=== PATIENT | female | born 1950 | race African-American/Black ===

== ENCOUNTER 2021-07-08 13:47 | Observation (INO) | payer OTHER ==
[2021-07-08 16:26] LABS: Absolute Lymphocytes (CBC) 2.1 K/uL (0.7-4.9); Basophils % 0.4 % (0-1.3); Lymphocytes % 13.6 % (15.3-44.8); MPV 9.2 fL (7.6-11.3); RBC Red Blood Cell Count 4.09 M/uL (3.86-4.86)
--- NOTE | 2021-07-08 16:29 | RAD REPORT ---
EXAM DESCRIPTION: RAD - Chest Single View - 07/08/2021 3:26 pm CLINICAL HISTORY: Chest pain, shortness of breath COMPARISON: January 2017 TECHNIQUE: AP portable chest image was obtained 07/08/2021 3:26 pm . FINDINGS: Lung volumes are low. Left subclavian pacemaker is still in place. Lung base markings are accentuated by the low lung volumes. This could mask early infiltrate or edema. Upper lung medeiros are clear. Cardiac silhouette is enlarged, most which is the portable technique and low lung volume affects. Hea rt and vasculature are normal. No measurable pleural effusion and no pneumothorax. No acute bony abno rmality seen. No acute aortic findings suspected. IMPRESSION: Early infiltrate or edema in either lung base cannot be excluded due to the affects of b long habitus, portable technique and shallow inspiration. No dense mass or consolidation. Borderline to mild cardiomegaly.
[2021-07-08 16:35] LABS: Protime INR 1.02
[2021-07-08 17:05] LABS: ALT/SGPT 34 U/L (12-78); AST/SGOT 21 U/L (15-37); Albumin 3.8 g/dL (3.4-5.0); Alkaline Phosphatase 93 U/L (45-117); BUN Blood Urea Nitrogen 22 mg/dL (7-18); Bicarbonate 25 mmol/L (21-32); Bilirubin Direct < 0.1 mg/dL (0-0.2); Bilirubin Total 0.2 mg/dL (0.2-1.0); Glucose Level 113 mg/dL (74-106); Magnesium 1.8 mg/dL (1.8-2.4); NT PRO-BNP 170 pg/mL (<125); Protein, Total 8.7 g/dL (6.4-8.2); Sodium Level 139 mmol/L (136-145); Troponin (Emerg Dept Use Only) < 0.02 ng/mL (0.0-0.045)
[2021-07-08 17:12] LABS: Potassium 6.3 mmol/L (3.5-5.1)
--- NOTE | 2021-07-08 17:36 | EDPHYS ---
Physician Documentation [facility] Name: Chelsi Nye Age: 70 yrs Sex: Female : 1950 Arrival Date: 07/08/2021 Time: 13:48 Bed 28 Private MD: Eric [facility] ED Physician Sergei Rdz HPI: 07/08 16:28 This 70 yrs old Black Female presents to ER via Ambulatory with complaints of Abnormal pm1 Lab Results - potassium. 16:28 Patient presenting with complaints of hyperkalemia. Patient with no other complaints pm1 other than abnormal lab work drawn by PCP yesterday. No associated symptoms or signs. Onset: The symptoms/episode began/occurred today. The patient has not experienced similar symptoms in the past. The patient has been recently seen by a physician: the patient's primary care provider, Dr. Reyes for apparently unrelated complaints, patient was seen for a routine check. Historical: - Allergies: 14:24 Codeine; lp1 - Home Meds: 15:25 clopidogrel 75 mg oral tab 1 tab once daily [Active]; metformin 500 mg Oral tab 1 tab 2 lp1 times per day [Active]; atorvastatin 80 mg oral tab 1 tab once daily [Active]; hydrochlorothiazide 25 mg Oral tab 1 tab once daily [Active]; carvedilol 12.5 mg oral tab 1 tab 2 times per day [Active]; hydralazine 25 mg Oral tab 3 tab 4 times per day [Active]; lisinopril 40 mg Oral tab 1 tab once daily [Active]; iron 65mg daily [Active]; - PMHx: 14:24 Hyperlipidemia; Hypertension; Myocardial infarction; CVA; lp1 - PSHx: 14:24 Pacemaker/Defib; lp1 - Immunization history:: Adult Immunizations up to date. - Social history:: Smoking status: Patient denies any tobacco usage or history of. ROS: 16:28 Constitutional: Negative for fever, chills, and weight loss, Cardiovascular: Negative pm1 for chest pain, palpitations, and edema, Respiratory: Negative for shortness of breath, cough, wheezing, and pleuritic chest pain, Abdomen/GI: Negative for abdominal pain, nausea, vomiting, diarrhea, and constipation, MS/Extremity: Negative for injury and deformity, Skin: Negative for injury, rash, and discoloration, Neuro: Negative for headache, weakness, numbness, tingling, and seizure. 16:28 All other systems are negative. Exam: 16:28 Constitutional: This is a well developed, well nourished patient who is awake, alert, pm1 and in no acute distress. Head/Face: Normocephalic, atraumatic. 16:28 Skin: Warm, dry with normal turgor. Normal color with no rashes, no lesions, and no evidence of cellulitis. MS/ Extremity: Pulses equal, no cyanosis. Neurovascular intact. Full, normal range of motion. 16:28 Cardiovascular: Exam negative for acute changes, Rate: normal, Rhythm: regular, Pulses: no pulse deficits are appreciated, Heart sounds: normal, normal S1and S2, Edema: is not appreciated. 16:28 Respiratory: Exam negative for acute changes, respiratory distress, shortness of breath, Breath sounds: are clear throughout. 16:28 Abdomen/GI: Inspection: obese Palpation: abdomen is soft and non-tender, in all quadrants. 16:28 Neuro: Exam negative for acute changes, Orientation: is normal, Mentation: is normal, Motor: moves all fours. 16:28 Eyes: Exam is negative for acute changes, Extraocular movements: intact throughout, pm1 Sclera: no acute changes, icterus, is not appreciated. 16:28 ENT: Exam is negative for acute changes, Mouth: no acute changes, Lips: normal, moist, Oral mucosa: normal, pink and intact, moist. Vital Signs: 14:27 BP 173 / 80; Pulse 102; Resp 20; Temp 98.4(O); Pulse Ox 100% on R/A; Weight 99.34 kg lp1 (R); Height 5 ft. 3 in. (160.02 cm); Pain 0/10; 16:44 BP 180 / 91; Pulse 103; Resp 16; Pulse Ox 100% ; jl7 18:00 BP 190 / 78; Pulse 113; Resp 15; Pulse Ox 100% ; jl7 18:15 BP 203 / 78; Pulse 121; Resp 19; Pulse Ox 96% ; jl7 18:45 BP 175 / 75; Pulse 115; Resp 20; Pulse Ox 96% ; jl7 14:27 Body Mass Index 38.79 (99.34 kg, 160.02 cm) lp1 MDM: 15:21 Patient medically screened. pm1 17:29 Physician consultation: Wilmer Fior was contacted at 17:29, regarding admission, pm1 patient's condition, and will see patient would like medications started, Lasix. 17:35 Data reviewed: vital signs. Data interpreted: Pulse oximetry: on room air is 100 %. pm1 Interpretation: normal. 17:35 Counseling: I had a detailed discussion with the patient and/or guardian regarding: the pm1 historical points, exam findings, and any diagnostic results supporting the discharge/admit diagnosis, lab results, radiology results, the need for further work-up and treatment in the hospital. 07/08 14:32 Order name: Basic Metabolic Panel; Complete Time: 17:19 lp1 07/08 14:32 Order name: CBC with Diff; Complete Time: 16:33 lp1 07/08 14:32 Order name: LFT's; Complete Time: 17:19 lp1 07/08 14:32 Order name: Magnesium; Complete Time: 17:19 lp1 07/08 14:32 Order name: NT PRO-BNP; Complete Time: 17:19 lp1 07/08 14:32 Order name: PT-INR; Complete Time: 16:59 lp1 07/08 14:32 Order name: Troponin (emerg Dept Use Only); Complete Time: 17:19 lp1 07/08 18:21 Order name: SARS-COV-2 RT PCR; Complete Time: 19:28 EDAZ 07/08 18:23 Order name: Urine Microscopic Only [facility] 07/08 18:24 Order name: Urine Microscopic Only EDAZ 07/09 06:06 Order name: CBC with Automated Diff EDAZ 07/09 06:09 Order name: Comprehensive Metabolic Panel EDAZ 07/09 06:09 Order name: Lipid Profile EDAZ 07/08 14:32 Order name: XRAY Chest (1 view); Complete Time: 16:33 lp1 07/09 06:09 Order name: T4 Free EDAZ 07/09 06:09 Order name: Thyroid Stimulating Hormone EDAZ 07/09 06:46 Order name: Urinalysis EDAZ 07/09 06:50 Order name: Procalcitonin EDAZ 07/09 06:57 Order name: Urine Microscopic Only EDAZ 07/09 09:02 Order name: RAD EDAZ 07/09 12:12 Order name: Basic Metabolic Panel EDAZ 07/09 12:12 Order name: Magnesium EDMS 07/08 14:32 Order name: EKG; Complete Time: 14:33 lp1 07/08 14:32 Order name: Cardiac monitoring; Complete Time: 16:12 lp1 07/08 14:32 Order name: EKG - Nurse/Tech; Complete Time: 16:34 lp1 07/08 14:32 Order name: IV Saline Lock; Complete Time: 16:12 lp1 07/08 14:32 Order name: Labs collected and sent; Complete Time: 16:12 lp1 07/08 14:32 Order name: O2 Per Protocol; Complete Time: 16:12 lp1 07/08 14:32 Order name: O2 Sat Monitoring; Complete Time: 16:12 lp1 Administered Medications: 17:50 Drug: D50W 50 ml Route: IVP; Site: right antecubital; jl7 18:29 Follow up: Response: No adverse reaction jl7 17:55 Drug: Insulin Regular Human 5 units {Co-Signature: ap3 (Trini Heck RN).} Route: jl7 IVP; Site: right antecubital; 18:29 Follow up: Response: No adverse reaction jl7 17:56 Drug: Albuterol 5 mg Route: Inhalation; jl7 18:29 Follow up: Response: No adverse reaction jl7 17:56 Drug: Lasix (furosemide) 20 mg Route: IVP; Site: right antecubital; jl7 18:29 Follow up: Response: No adverse reaction jl7 17:59 Drug: Calcium Gluconate 1 grams Route: IVPB; Infused Over: 60 mins; Site: right jl7 antecubital; 18:56 Follow up: IV Status: Completed infusion ap3 18:29 Drug: hydrALAZINE 10 mg Route: IVP; Site: right antecubital; jl7 19:00 Follow up: Response: No adverse reaction; Blood pressure is lowered jl7 20:58 Drug: NS 0.9% 500 ml Route: IV; Rate: bolus; Site: right antecubital; fu 21:45 Follow up: Response: No adverse reaction; IV Status: Completed infusion; IV Intake: jl7 500ml 20:59 Drug: Kayexalate (polystyrene) 45 grams Route: PO; fu Disposition: 07/09 16:22 Co-signature as Attending Physician, Sergei Rdz MD I agree with the assessment and sammie plan of care. Disposition Summary: 07/08/21 17:36 Hospitalization Ordered Hospitalization Status: Observation pm1 Condition: Stable pm1 Problem: new pm1 Symptoms: have improved pm1 Bed/Room Type: Standard pm1 Provider: Arturo Hickey(07/08/21 18:29) la1 Location: [facility] ER HOLD(07/08/21 19:22) Room Assignment: ERHOLD-(07/08/21 19:22) cg Diagnosis - Hyperkalemia pm1 Forms: - Medication Reconciliation Form pm1 - SBAR form pm1 Signatures: Dispatcher [employer] EDMS Sergei Rdz MD MD cha Pena, Laura, RN RN lp1 Wilmer Childress, PASTORAL WORKER-C PASTORAL WORKER-Cla1 Rosette Solorzano, RN RN Antonio Cesar, MAGGI TRANSFORMATION LEAD pm1 Albin Elkins RN RN jl7 Stanley Rea RN Trini Olmstead RN ap3 Trini Heck RN ap3 Corrections: (The following items were deleted from the chart) 07/08 17:43 17:36 Wilmer Childress pm1 la1 18:21 17:36 CORONAVIRUS+MR.LAB.BRZ ordered. [facility] EDAZ 18:29 17:43 Serg Flowers la1 la1 19:22 17:36 Telemetry/MedSurg (observation) pm1 cg 19:22 17:36 pm1 cg
--- NOTE | 2021-07-08 17:36 | ER ---
Nurse's Notes [facility] Name: Chelsi Nye Age: 70 yrs Sex: Female : 1950 Arrival Date: 07/08/2021 Time: 13:48 Bed 28 Private MD: Nick Reyes Diagnosis: Hyperkalemia Presentation: 07/08 14:23 Chief complaint: Patient states: Labs done yesterday at Dr. Reyes's office and notified lp1 today of high potassium level. Coronavirus screen: At this time, the client does not indicate any symptoms associated with coronavirus-19. Ebola Screen: No symptoms or risks identified at this time. Risk Assessment: Do you want to hurt yourself or someone else? Patient reports no desire to harm self or others. Onset of symptoms was July 08, 2021. 14:23 Method Of Arrival: Ambulatory lp1 14:23 Acuity: VISHAL 3 lp1 14:27 Initial Sepsis Screen: Does the patient meet any 2 criteria? No. Patient's initial lp1 sepsis screen is negative. Does the patient have a suspected source of infection? No. Patient's initial sepsis screen is negative. Historical: - Allergies: 14:24 Codeine; lp1 - Home Meds: 15:25 clopidogrel 75 mg oral tab 1 tab once daily [Active]; metformin 500 mg Oral tab 1 tab 2 lp1 times per day [Active]; atorvastatin 80 mg oral tab 1 tab once daily [Active]; hydrochlorothiazide 25 mg Oral tab 1 tab once daily [Active]; carvedilol 12.5 mg oral tab 1 tab 2 times per day [Active]; hydralazine 25 mg Oral tab 3 tab 4 times per day [Active]; lisinopril 40 mg Oral tab 1 tab once daily [Active]; iron 65mg daily [Active]; - PMHx: 14:24 Hyperlipidemia; Hypertension; Myocardial infarction; CVA; lp1 - PSHx: 14:24 Pacemaker/Defib; lp1 - Immunization history:: Adult Immunizations up to date. - Social history:: Smoking status: Patient denies any tobacco usage or history of. Screenin:27 Abuse screen: Denies threats or abuse. Denies injuries from another. Nutritional lp1 screening: No deficits noted. Tuberculosis screening: No symptoms or risk factors identified. Fall Risk None identified. Assessment: 16:00 General: Appears in no apparent distress. uncomfortable, Behavior is calm, cooperative, jl7 appropriate for age. Pain: Denies pain. Neuro: Level of Consciousness is awake, alert, obeys commands, Oriented to person, place, time, situation. Cardiovascular: Denies chest pain, palpitations, shortness of breath, Patient's skin is warm and dry. Respiratory: Airway is patent Respiratory effort is even, unlabored, Respiratory pattern is regular, symmetrical. Derm: Skin is dry, Skin is normal, Skin temperature is warm. 17:00 Reassessment: Patient appears in no apparent distress at this time. No changes from jl7 previously documented assessment. Patient and/or family updated on plan of care and expected duration. Pain level reassessed. Patient is alert, oriented x 3, equal unlabored respirations, skin warm/dry/pink. 18:00 Reassessment: Patient appears in no apparent distress at this time. No changes from jl7 previously documented assessment. Patient and/or family updated on plan of care and expected duration. Pain level reassessed. Patient is alert, oriented x 3, equal unlabored respirations, skin warm/dry/pink. Vital Signs: 14:27 BP 173 / 80; Pulse 102; Resp 20; Temp 98.4(O); Pulse Ox 100% on R/A; Weight 99.34 kg lp1 (R); Height 5 ft. 3 in. (160.02 cm); Pain 0/10; 16:44 BP 180 / 91; Pulse 103; Resp 16; Pulse Ox 100% ; jl7 18:00 BP 190 / 78; Pulse 113; Resp 15; Pulse Ox 100% ; jl7 18:15 BP 203 / 78; Pulse 121; Resp 19; Pulse Ox 96% ; jl7 18:45 BP 175 / 75; Pulse 115; Resp 20; Pulse Ox 96% ; jl7 14:27 Body Mass Index 38.79 (99.34 kg, 160.02 cm) lp1 ED Course: 13:48 Patient arrived in ED. as 13:48 Nick Reyes DO is Private Physician. as 14:24 Triage completed. lp1 14:24 Arm band placed on. lp1 15:21 Antonio Rossi NP is PHCP. pm1 15:21 Sergei Rdz MD is Attending Physician. pm1 15:25 Albin Elkins, CHAPO is Primary Nurse. jl7 15:26 XRAY Chest (1 view) In Process Unspecified. EDMS 16:00 Patient has correct armband on for positive identification. Placed in gown. Bed in low jl7 position. Call light in reach. Side rails up X2. playground monitor on. Pulse ox on. NIBP on. Warm blanket given. 16:00 Initial lab(s) drawn, by me, sent to lab. EKG done, by ED staff, reviewed by Antonio Rossi NP. Inserted saline lock: 20 gauge in right antecubital area, using aseptic technique. Blood collected. 17:35 Wilmer Childress is Hospitalizing Provider. pm1 17:43 Serg Flowers DO is Hospitalizing Provider. la1 18:29 Arturo Hickey MD is Hospitalizing Provider. la1 18:31 No provider procedures requiring assistance completed. Patient admitted, IV remains in jl7 place. intact, No redness/swelling at site. Administered Medications: 17:50 Drug: D50W 50 ml Route: IVP; Site: right antecubital; jl7 18:29 Follow up: Response: No adverse reaction jl7 17:55 Drug: Insulin Regular Human 5 units {Co-Signature: ap3 (Trini Heck RN).} Route: jl7 IVP; Site: right antecubital; 18:29 Follow up: Response: No adverse reaction jl7 17:56 Drug: Albuterol 5 mg Route: Inhalation; jl7 18:29 Follow up: Response: No adverse reaction jl7 17:56 Drug: Lasix (furosemide) 20 mg Route: IVP; Site: right antecubital; jl7 18:29 Follow up: Response: No adverse reaction jl7 17:59 Drug: Calcium Gluconate 1 grams Route: IVPB; Infused Over: 60 mins; Site: right jl7 antecubital; 18:56 Follow up: IV Status: Completed infusion ap3 18:29 Drug: hydrALAZINE 10 mg Route: IVP; Site: right antecubital; jl7 19:00 Follow up: Response: No adverse reaction; Blood pressure is lowered jl7 20:58 Drug: NS 0.9% 500 ml Route: IV; Rate: bolus; Site: right antecubital; fu 21:45 Follow up: Response: No adverse reaction; IV Status: Completed infusion; IV Intake: jl7 500ml 20:59 Drug: Kayexalate (polystyrene) 45 grams Route: PO; fu Intake: 21:45 IV: 500ml; Total: 500ml. jl7 Outcome: 17:36 Decision to Hospitalize by Provider. pm1 19:30 Admitted to ER Hold. Please see [facility] for further documentation. jl7 19:30 Condition: stable 19:30 Discharge instructions given to patient, family, Instructed on the need for admit, Demonstrated understanding of instructions. 07/09 13:18 Patient left the ED. eb Signatures: Dispatcher [employer] EDMS Yuly Wright Laura, RN CHAPO lp1 Wilmer Childress, MANAGED CARE MANAGER-C MANAGED CARE MANAGER-[facility]1 Antonio Rossi, MANAGER WHOLESALE MANAGER WHOLESALE pm1 Albin Elkins RN RN jl7 Stanley Rea RN RN fu Prokisch, Amanda, RN RN ap3 Miryam Simpson RN3
[2021-07-08] MEDS ORDERED: ALBUTEROL 2.5 MG/3 ML NEB SOL ONE (18:02)
[2021-07-08] MEDS ORDERED: FUROSEMIDE 20 MG/ 2ML VIAL ONE (18:02)
[2021-07-08] MEDS ORDERED: CALCIUM GLUCONATE 1 GM IVPB 1 GM/50 ML BAG IV ONE (18:03)
[2021-07-08] MEDS ORDERED: D50W 25 GM/50 ML SYRINGE IV ONE (18:03)
[2021-07-08] MEDS ORDERED: INSULIN -REGULAR HUMAN 50 UNIT/0.5 ML ML ONE (18:03)
--- NOTE | 2021-07-08 18:29 | P.HP ---
Certification for Inpatient Patient admitted to: Observation With expected LOS: <2 Midnights Patient will require the following post-hospital care: None Practitioner: I am a practitioner with admitting privileges, knowledge of patient current condition, hospital course, and medical plan of care. Services: Services provided to patient in accordance with Admission requirements found in Title 42 Section 412.3 of the Code of Federal Regulations Patient History Date of Service: 07/08/21 Primary Care Provider: Dr. Reyes Reason for admission: Hyperkalemia History of Present Illness: 70-year-old Afro-[place] female presented to the emergency department for abnormal lab. Patient had labs drawn by her primary care doctor Dr. Reyes yesterday and she was called for having high potassium level of 7.0. Patient was referred to the emergency department and evaluated labs are significant for potassium 6.3 chloride 108 BUN 22 GFR 58 glucose 113 BNP 170 blood cell count 15.6 hemoglobin 11.2 urinalysis pending. Patient's renal function slightly worse than previous baseline GFR appears to be around 80, currently 58. Patient does not take any potassium sparing diuretics or other medications although daughter does report that she has been taking a lot of vitamin supplementation given Covid environment. Daughter does not have the supplements available for review at this time but will attempt to obtain them. Patient was treated with Kayexalate, IV insulin/dextrose, calcium gluconate, Lasix in the emergency department for hyperkalemia. EKG with some mild peaked T waves, ED provider wishes to admit to observation for further evaluation and management. Allergies codeine Allergy (Unverified 02/16/17 21:20) Unknown - Past Medical/Surgical History -: Hypertension -: Hyperlipidemia -: History of GA/CVA 2016 -: Pacemaker/defibrillator insertion Psychosocial/ Personal History: Currently resides with her daughter - Family History Family History: Reviewed- Non-Contributory - Social History Smoking Status: Never smoker Alcohol use: No CD- Drugs: No Caffeine use: No Place of Residence: Home Review of Systems Unremarkable Physical Examination - Physical Exam General: Alert, In no apparent distress, Oriented x3 HEENT: Atraumatic, PERRLA, Other (Mucous membranes dry), EOMI, Sclerae nonicteric Neck: Supple, 2+ carotid pulse no bruit, No LAD, Without JVD or thyroid abnormality Respiratory: Clear to auscultation bilaterally, Normal air movement Cardiovascular: Regular rate/rhythm, Normal S1 S2 Gastrointestinal: Normal bowel sounds, No tenderness Musculoskeletal: No tenderness Integumentary: No rashes Neurological: Normal speech, Normal strength at 5/5 x4 extr, Normal tone, Normal affect - Studies Laboratory Data (last 24 hrs) 07/08/21 16:09: PT 11.7, INR 1.02 07/08/21 16:09: WBC 15.60 H, Hgb 11.2 L, Hct 36.0, Plt Count 329 07/08/21 16:09: Sodium 139, Potassium 6.3 H*, BUN 22 H, Creatinine 1.12, Glucose 113 H, Magnesium 1.8, Total Bilirubin 0.2, AST 21, ALT 34, Alkaline Phosphatase 93 Assessment and Plan - Plan Assessment: Hyperkalemia Acute kidney injury Leukocytosis Hypertension Hyperlipidemia History of GA/CVA Plan: Hyperkalemia: Treated with potassium cocktail in the emergency department, will recheck. Patient not on any potassium sparing diuretics, renal function although slightly diminished from previous appears to be intact, patient with good urinary output. Daughter reports that patient has been taking some [id number] supplements to protect from Covid, will attempt to obtain the medications to determine if this could be contributing. Acute kidney injury: Continue gentle hydration throughout the evening, recheck with morning labs. Leukocytosis: ROS negative, will obtain procalcitonin, urine interview chest x- ray. Hypertension: Obtain and continue medications, patient is hypertensive had to give hydralazine in the ER. Hyperlipidemia: Obtain and continue medications History of GA/CVA: No deficits from previous CVA, continue home medications. DVT PPX: Heparin Code status: Full Discharge Plan: Home Plan to discharge in: 24 Hours - Advance Directives Does patient have a Living Will: No Does patient have a Durable POA for Healthcare: No - Code Status/Comfort Care Code Status Assessed: Yes (Full code) Critical Care: No Time Spent Managing Pts Care (In Minutes): 55
[2021-07-08] MEDS ORDERED: SOD POLYSTYREN SUL 15 GM/60 ML UCUP ONE ×3 (18:40→21:09)
[2021-07-08] MEDS ORDERED: HYDRALAZINE HCL 20 MG/ML VIAL ONE (18:40)
[2021-07-08] MEDS ORDERED: ONDANSETRON 4 MG/2 ML VIAL IV PRN (20:09)
[2021-07-08] MEDS ORDERED: HYDRALAZINE HCL 20 MG/ML VIAL IV PRN (20:09)
[2021-07-08] MEDS ORDERED: NA CHLORIDE 0.9% 500 ML ONE (21:05)
[2021-07-08] MEDS: NA CHLORIDE 0.9% 1,000 ML IV SCH (21:35)
[2021-07-08] MEDS: HEPARIN 5000 UNIT/ML 1 ML VIAL SQ SCH (21:35)
[2021-07-08] MEDS ORDERED: HEPARIN 5000 UNIT/ML 1 ML VIAL ONE (21:58)
[2021-07-08] MEDS ORDERED: NA CHLORIDE 0.9% 1,000 ML ONE (21:58)
[2021-07-09 01:44] VITALS: BMI 34.7
[2021-07-09 06:02] LABS: Absolute Lymphocytes (CBC) 1.8 K/uL (0.7-4.9); Basophils % 0.3 % (0-1.3); Hematocrit 30.9 % (36.0-45.0); Lymphocytes % 13.6 % (15.3-44.8); MPV 9.5 fL (7.6-11.3); RBC Red Blood Cell Count 3.57 M/uL (3.86-4.86)
[2021-07-09 06:09] LABS: Albumin 3.1 g/dL (3.4-5.0); Bilirubin Total 0.3 mg/dL (0.2-1.0); Potassium 4.5 mmol/L (3.5-5.1); Protein, Total 6.8 g/dL (6.4-8.2); Thyroid Stimulating Hormone 0.593 uIU/mL (0.360-3.740)
[2021-07-09 06:45] LABS: Urine Appearance CLEAR (Clear); Urine Bilirubin NEGATIVE (Negative); Urine Blood NEGATIVE (Negative); Urine Color YELLOW (Yellow); Urine Glucose NEGATIVE (Negative); Urine Protein NEGATIVE (Negative); Urine Urobilinogen 0.2 mg/dL (0.2-1.0)
[2021-07-09 06:46] LABS: Urine Microscopic Reflex ORDER UMIC
[2021-07-09] MEDS ORDERED: NA CHLORIDE 0.9% 0 ML ONE (08:08)
[2021-07-09] MEDS ORDERED: HEPARIN 5000 UNIT/ML 1 ML VIAL ONE (08:08)
[2021-07-09] MEDS: HEPARIN 5000 UNIT/ML 1 ML VIAL SQ SCH (08:34)
--- NOTE | 2021-07-09 09:01 | RAD REPORT ---
EXAM DESCRIPTION: Junito Moore (2 Views)07/09/2021 8:18 am CLINICAL HISTORY: Cough COMPARISON: July 08 FINDINGS: The lungs appear clear of acute infiltrate. The heart is mildly enlarged. Pacemaker leads in place IMPRESSION: No acute abnormalities displayed
[2021-07-09] MEDS: NA CHLORIDE 0.9% 1,000 ML IV SCH (09:29)
[2021-07-09 12:12] LABS: Magnesium 1.7 mg/dL (1.8-2.4); Potassium 4.3 mmol/L (3.5-5.1)
[2021-07-09 12:23] VITALS: BP 165/77; TEMP 98.5; O2SAT 98
--- NOTE | 2021-07-09 15:32 | P.DS ---
Admission Date: 07/08/21 Discharge Date: 07/09/21 Primary Care Provider: Dr. Reyes Disposition: ROUTINE DISCHARGE Discharge Condition: GOOD Reason for Admission: Hyperkalemia Procedures: CXR (07/08): FINDINGS: Lung volumes are low. Left subclavian pacemaker is still in place. Lung base markings are accentuated by the low lung volumes. This could mask early infiltrate or edema. Upper lung medeiros are clear. Cardiac silhouette is enlarged, most which is the portable technique and low lung volume affects. Heart and vasculature are normal. No measurable pleural effusion and no pneumothorax. No acute bony abnormality seen. No acute aortic findings suspected. IMPRESSION: Early infiltrate or edema in either lung base cannot be excluded due to the affects of body habitus, portable technique and shallow inspiration. CXR (07/09): FINDINGS: The lungs appear clear of acute infiltrate. The heart is mildly enlarged. Pacemaker leads in place IMPRESSION: No acute abnormalities displayed Problem List Hyperkalemia. Acute kidney injury, prerenal, dehydration Leukocytosis, unknown etiology Hypertension Hyperlipidemia History of DC/CVA Brief History of Present Illness: 70yo black F, presented to the ED under advisement by her PCP due to incidental finding of potassium: 7.0 on routine labs. Patient denied any symptoms, reported she was in her usual state of health. Denied chest pain or palpitations. In the ED, labs notable for potassium 6.3, GFR: 58, WBC: 15.6. P atient with a very mild MELISA, baseline GFR around 80. She denied taking any potassium supplements, does not take any potassium sparing diuretics or other medications that could really affect her potassium levels. Her daughter reported that she has been taking a lot of different vitamin supplementations given the ongoing Covid pandemic. She is unsure exactly what is in the supplements. EKG was very mild/questionable peaked T waves, she was given Kayexalate, insulin, Lasix, and ER provider wanted to observe over night. Hospital Course: Patient had improvement/normalization of her potassium levels per the following morning. She again reported feeling like her usual self, denied any symptoms. Vitals were stable, slight tachycardic in the 90s. Potassium was rechecked at noon and remained stable. Patient requested for discharge and she was feeling well and her potassium was stable. She was deemed stable for discharge home, to follow-up with her PCP later this week with repeat blood work. Upon further discussion, patient stated she had also started eating 2 bananas into oranges daily over the last ~3 weeks. Review of EMR shows patient's potassium has been in the high 4s/5s. I suspect the hyperkalemia is secondary due to her recent change in diet intake and possibly these new/unknown supplements. She was advised to stop eating bananas and oranges until follow-up with her PCP later this week. She was also advised to stop taking these new unknown supplements and to take the bottle with her to her PCPs office to review. She was unable to provide the name or bottle while in the hospital for me to review. Hyperkalemia. 6.3 Initial chest x-ray read as very low possibility of opacities/possible mild/early pneumonia. Chest x-ray PA/lateral was done the following morning and did not have any signs of acute process going on. Vital Signs/Physical Exam: Temp Pulse Resp BP Pulse Ox 98.5 F 100 H 20 165/77 H 98 07/09/21 12:00 07/09/21 12:00 07/09/21 12:00 07/09/21 12:00 07/09/21 12:00 General: Alert, In no apparent distress, Oriented x3 HEENT: Sclerae nonicteric Neck: Supple, No LAD Respiratory: Clear to auscultation bilaterally, Normal air movement Cardiovascular: No edema, Regular rate/rhythm, No murmurs Gastrointestinal: Soft and benign, Non-distended, No tenderness Musculoskeletal: No erythema, No tenderness Integumentary: No rashes, No significant lesion Neurological: Normal speech, Normal affect Laboratory Data at Discharge: WBC 13.50 K/uL (4.3-10.9) H 07/09/21 05:00 Hgb 9.8 g/dL (12.0-15.0) L 07/09/21 05:00 Hct 30.9 % (36.0-45.0) L 07/09/21 05:00 Plt Count 286 K/uL (152-406) 07/09/21 05:00 PT 11.7 SECONDS (9.5-12.5) 07/08/21 16:09 INR 1.02 07/08/21 16:09 Sodium 141 mmol/L (136-145) 07/09/21 11:45 Potassium 4.3 mmol/L (3.5-5.1) 07/09/21 11:45 BUN 21 mg/dL (7-18) H 07/09/21 11:45 Creatinine 0.87 mg/dL (0.55-1.3) 07/09/21 11:45 Glucose 132 mg/dL (74-106) H 07/09/21 11:45 Magnesium 1.7 mg/dL (1.8-2.4) L 07/09/21 11:45 Total Bilirubin 0.3 mg/dL (0.2-1.0) 07/09/21 05:20 AST 21 U/L (15-37) 07/09/21 05:20 ALT 23 U/L (12-78) 07/09/21 05:20 Alkaline Phosphatase 67 U/L (45-117) 07/09/21 05:20 Triglycerides 200 mg/dL (<150) H 07/09/21 05:20 Cholesterol 124 mg/dL (<200) 07/09/21 05:20 HDL Cholesterol 33 mg/dL (40-60) L 07/09/21 05:20 Cholesterol/HDL Ratio 3.76 07/09/21 05:20 Home Medications: Atorvastatin Calcium [Lipitor] 80 mg PO BEDTIME 07/09/21 Carvedilol [Coreg] 12.5 mg PO BID 07/09/21 Cholecalciferol (Vitamin D3) [Vitamin D3] 50 mcg PO DAILY 07/09/21 Clopidogrel Bisulfate [Plavix*] 75 mg PO DAILY 07/09/21 Flaxseed Oil [Flaxseed] 1,000 mg PO DAILY 07/09/21 Hydralazine [Apresoline*] 3 tab PO QID 07/09/21 Iron 65 mg PO DAILY 07/09/21 Lisinopril [Zestril] 40 mg PO DAILY 07/09/21 Metformin ER [Glucophage ER*] 500 mg PO BID 07/09/21 hydroCHLOROthiazide [Hydrochlorothiazide] 25 mg PO DAILY 07/09/21 Physician Discharge Instructions: You were found to have high potassium, improved with potassium lowering medications and remained stable afterwards. You were noted to be slightly dehydrated, and it was felt your high potassium levels were partly due to your diet of 2 bananas/oranges every day and possibly from the new supplements you have been taking. Recommend cutting these out and following up with your PCP in ~3-5 days with repeat blood work. Resume your other prescription medication as previously prescribed. You were noted to have a mild elevation of your white blood cells, but no signs of infection or inflammation. This improved with IV fluid and you were not treated with any antibiotics. Diet: AHA Activity: Ad felix Followup: Nick Reyes, [Primary Care Provider] - 2-3 Days (Call for appointment.) Time spent managing pt's care (in minutes): 45
--- NOTE | 2021-07-10 09:01 | EKG ---
Test Date: 2021-07-08 Test Time: 16:16:21 [employer]: [employer] MEASUREMENT RESULTS: Intervals: Rate: 100 CT: 120 QRSD: 132 QT: 386 QTc: 497 [place]: P: 51 CT: 120 QRS: -49 T: 118 INTERPRETIVE STATEMENTS: Atrial-sensed ventricular-paced rhythm with occasional premature ventricular complexes Abnormal ECG Compared to ECG 02/16/2017 17:37:59 Ventricular premature complex(es) now present Sinus rhythm no longer present Electronically Signed On 07-10-21 08:57:34 CDT by Clark Campbell
== END 2021-07-09 13:15 | disposition home or self-care (01) ==
LOC: ER 13:47 → ERHOLD 18:19
PROVIDERS: ADMIT Hospitalist; ATTEND Hospitalist
DX: E87.5 Hyperkalemia (principal); N17.9 Acute kidney failure, unspecified; E86.0 Dehydration; D72.829 Elevated white blood cell count, unspecified; I10 Essential (primary) hypertension; E78.5 Hyperlipidemia, unspecified; I25.2 Old myocardial infarction; Z86.73 Personal history of transient ischemic attack (TIA), and cerebral infarction without residual deficits; Z95.810 Presence of automatic (implantable) cardiac defibrillator; Z79.02 Long term (current) use of antithrombotics/antiplatelets; Z88.6 Allergy status to analgesic agent; Z20.822 Contact with and (suspected) exposure to COVID-19
CPT/HCPCS: 93005; 87088; 85025 ×2; 87086; 80048 ×2; 36415; 83735 ×2; 85610; 80061; 80076; 84443; 81003; 84484; 84439; 80053; 84145; 83880; 71045; 71046; 96375; 99285; U0003; J0360; J1940; J1644 ×2; J0610; J7040; J7030; G0378 ×3

== ENCOUNTER 2024-01-10 15:19 | Observation (INO) | payer MEDICARE ==
[2024-01-10 16:11] LABS: Absolute Basophils 0.1 K/uL (0-0.5); Absolute Eosinophils 0.1 K/uL (0-0.5); Absolute Lymphocytes (CBC) 2.8 K/uL (0.7-4.9); Absolute Monocytes 0.8 K/uL (0.1-1.3); Basophils % 0.7 % (0-1.3); Eosinophils % 0.5 % (0-4.4); Hematocrit 39.1 % (36.0-45.0); Hemoglobin 12.1 g/dL (12.0-15.0); Lymphocytes % 17.7 % (15.3-44.8); MCH 25.7 pg (27.0-35.0); MCHC 30.9 g/dL (32.0-36.0); MPV 10.3 fL (7.6-11.3); Monocytes % 5.3 % (3.3-12.3); Neutrophils % 75.8 % (41.7-73.7); Platelets 254 thou/uL (152-406); RBC Red Blood Cell Count 4.71 M/uL (3.86-4.86); Red Cell Distribution Width 14.2 % (12.1-15.2)
[2024-01-10 16:20] LABS: PT Prothrombin Time 11.6 SECONDS (9.5-12.5); Protime INR 1.06
[2024-01-10] MEDS ORDERED: NA CHLORIDE 0.9% 1,000 ML ONE (16:23)
[2024-01-10 16:41] LABS: ALT/SGPT 31 U/L (13-56); AST/SGOT 16 U/L (15-37); Albumin 3.4 g/dL (3.4-5.0); Albumin/Globulin Ratio 0.8 (1.1-1.8); Alkaline Phosphatase 114 U/L (45-117); Anion Gap 12.2 mEq/L (5.0-15.0); BUN Blood Urea Nitrogen 26 mg/dL (7-18); Bicarbonate 22 mEq/L (21-32); Bilirubin Total 0.3 mg/dL (0.2-1.0); Globulin 4.3 g/dL (2.3-3.5); Glomerular Filtration Rate 35 ml/min (=/>90); Glucose Level 246 mg/dL (74-106); Magnesium 1.6 mg/dL (1.6-2.4); NT PRO-BNP 149 pg/mL (<125); Potassium 4.2 mEq/L (3.5-5.1); Protein, Total 7.7 g/dL (6.4-8.2); Sodium Level 135 mEq/L (136-145); Thyroid Stimulating Hormone 0.896 uIU/mL (0.358-3.740); Troponin High Sensitivity 19.6 pg/mL (<58.9)
[2024-01-10 16:43] LABS: Bilirubin Direct < 0.1 mg/dL (0-0.2); Bilirubin Indirect, Calculated ND mg/dL (0.2-0.8)
--- NOTE | 2024-01-10 16:49 | RAD REPORT ---
EXAM DESCRIPTION: [facility] Single View01/10/2024 4:19 pm CLINICAL HISTORY: Tachycardia COMPARISON: 2020 FINDINGS: Right hemidiaphragm is elevated. Lungs appear clear acute infiltrate. Heart is mildly enlarged. Pacemaker leads in place
[2024-01-10 18:23] LABS: Specific Gravity 1.019 (1.005-1.030); Sqamous Epithelial <5 /HPF (None Seen); Urine Bacteria <20 /HPF (<20); Urine Bilirubin NEGATIVE (Negative); Urine Blood Negative (Negative); Urine Clarity Turbid (Clear); Urine Color Light-Yellow (Yellow); Urine Culture Reflex Order NOT NEEDED; Urine Glucose 1+ (Negative); Urine Ketones NEGATIVE (Negative); Urine Micro Reflex YN NO BILL MICROSCOPIC; Urine Mucus Slight /HPF (None Seen); Urine Nitrite NEGATIVE (Negative); Urine Protein TRACE (Negative); Urine RBC <5 /HPF (None Seen); Urine Urobilinogen Normal (Normal); Urine WBC <5 /HPF (<5); Urine pH 5.5 (5.0-7.0)
[2024-01-10] MEDS ORDERED: CEFTRIAXONE 1000 MG/VIAL ONE (18:36)
[2024-01-10] MEDS ORDERED: NA CHLORIDE 0.9% 50 ML ONE (18:37)
--- NOTE | 2024-01-10 18:48 | ER ---
Nurse's Notes [facility] Name: Chelsi Nye Age: 73 yrs Sex: Female : 1950 Arrival Date: 01/10/2024 Time: 15:19 Bed 18 Private MD: Nick Reyes Diagnosis: Persistent tachycardia;Leukocytosis Presentation: 01/09 15:39 Chief complaint: Patient's son or daughter states: the patient was at her dr office ap3 when she was informed to come be evaluated at the ED for an elevated ER rate. patient denies any pain at this time. Coronavirus screen: At this time, the client does not indicate any symptoms associated with coronavirus-19. Ebola Screen: No symptoms or risks identified at this time. Initial Sepsis Screen: Does the patient meet any 2 criteria? HR > 90 bpm. No. Patient's initial sepsis screen is negative. Does the patient have a suspected source of infection? No. Patient's initial sepsis screen is negative. Risk Assessment: Do you want to hurt yourself or someone else? Patient reports no desire to harm self or others. Onset of symptoms was January 10, 2024. 15:39 Method Of Arrival: Ambulatory ap3 15:39 Acuity: VISHAL 3 ap3 Triage Assessment: 15:41 General: Appears in no apparent distress. Behavior is calm, cooperative, appropriate ap3 for age. Pain: Denies pain. Neuro: Level of Consciousness is awake, alert, obeys commands, Oriented to person, place, time, situation. Cardiovascular: Patient's skin is warm and dry. Respiratory: Airway is patent Respiratory effort is even, unlabored. Historical: - Allergies: 15:41 Codeine; ap3 - PMHx: 15:41 CVA; Hyperlipidemia; Hypertension; Myocardial infarction; ap3 - Immunization history:: Client reports having NOT received the Covid vaccine. Flu vaccine is not up to date. - Infectious Disease History:: Denies. - Social history:: Smoking status: Patient denies any tobacco usage or history of. - Family history:: not pertinent. Screenin:43 Abuse screen: Denies threats or abuse. Nutritional screening: No deficits noted. ap3 Tuberculosis screening: No symptoms or risk factors identified. 16:13 [facility] ED Fall Risk Assessment (Adult) History of falling in the last 3 months, me1 including since admission No falls in past 3 months (0 pts) Confusion or Disorientation No (0 pts) Intoxicated or Sedated No (0 pts) Impaired Gait No (0 pts) Mobility Assist Device Used No (0 pt) Altered Elimination No (0 pt) Score/Fall Risk Level 0 - 2 = Low Risk Maintained a safe environment, Provided non-skid footwear, Hourly rounding (assess needs \T\ fall precautionary measures) done. Assessment: 16:13 General: Appears comfortable, well developed, well nourished, Behavior is calm, me1 cooperative, appropriate for age, Reports at Dr visit for routine checkup and was sent by Dr to ER for elevated HR. Pain: Denies pain. Neuro: Level of Consciousness is awake, alert, obeys commands, Oriented to person, place, time, situation, Appropriate for age. Cardiovascular: Capillary refill < 3 seconds Patient's skin is warm and dry. Respiratory: Airway is patent Respiratory effort is even, unlabored, Respiratory pattern is regular, symmetrical. GI: No signs and/or symptoms were reported involving the gastrointestinal system. : No signs and/or symptoms were reported regarding the genitourinary system. EENT: No signs and/or symptoms were reported regarding the EENT system. Derm: Skin is intact, is healthy with good turgor, Skin is pink, warm \T\ dry. Musculoskeletal: No signs and/or symptoms reported regarding the musculoskeletal system. 16:30 General: patient and family do not know what brand patient's pacemaker is. Attempted to me1 interrogate with [employer] and [employer] interrogator and device cannot be found by either. Dr Man informed. . Vital Signs: 15:39 Pulse 125; Resp 19; Temp 98.7; Pulse Ox 99% on R/A; Weight 95.25 kg; ap3 15:46 BP 179 / 80; me1 16:00 BP 158 / 96; Pulse 120; Resp 22; Pulse Ox 100% on R/A; me1 17:00 BP 185 / 93; Pulse 121; Resp 19; Pulse Ox 98% on R/A; me1 18:00 BP 187 / 83; Pulse 117; Resp 19; Pulse Ox 98% on R/A; me1 19:00 BP 171 / 80; Pulse 112; Resp 19; Pulse Ox 99% on R/A; me1 20:00 BP 176 / 72; Pulse 109; Resp 19; Pulse Ox 97% on R/A; me1 ED Course: 15:21 Patient arrived in ED. mr 15:21 Nick Reyes DO is Private Physician. mr 15:22 Sae Man MD is Attending Physician. rt 15:31 Christy Ceron, RN is Primary Nurse. me1 15:41 Triage completed. ap3 15:42 Arm band placed on right wrist. ap3 15:43 skeins yarn examiner on. Pulse ox on. NIBP on. ap3 16:01 Initial lab(s) drawn, by me, sent to lab. Inserted saline lock: 22 gauge in left me1 antecubital area, using aseptic technique. 16:02 Basic Metabolic Panel Sent. me1 16:02 TSH Sent. me1 16:02 CBC with Diff Sent. me1 16:02 LFT's Sent. me1 16:02 Magnesium Sent. me1 16:02 NT PRO-BNP Sent. me1 16:02 PT-INR Sent. me1 16:02 Troponin HS Sent. me1 16:11 EKG done, by ED staff, reviewed by Sae Man MD. me1 16:13 Patient has correct armband on for positive identification. Bed in low position. Call ak1 light in reach. Side rails up X2. Provided Education on: POC. Verbalized understanding, . 16:13 No provider procedures requiring assistance completed. me1 16:20 XRAY Chest (1 view) In Process Unspecified. EDMS 17:53 UAM Sent. me1 18:01 Urine collected: clean catch specimen, cloudy. me1 18:45 Cleemnte Perera MD is Hospitalizing Provider. rt 20:20 Thyroid Stimulating Hormone Sent. me1 20:20 Troponin High Sensitivity Sent. me1 20:28 Patient admitted, IV remains in place. me1 Administered Medications: 16:40 Drug: NS 0.9% IV 1000 ml IV at 1 bolus Per protocol; 1000 mL bolus Route: IV; Rate: 1 me1 bolus; Site: left antecubital; 17:20 Follow up: Response: No adverse reaction; IV Status: Completed infusion; IV Intake: me1 1000ml 18:44 Drug: Rocephin - Rocephin (cefTRIAXone) IVPB 1 grams IVPB once over 30 mins; (mix in 50 me1 mL NS) Route: IVPB; Infused Over: 30 mins; Site: left antecubital; 19:19 Follow up: Response: No adverse reaction; IV Status: Completed infusion; IV Intake: [id number] Medication: 16:13 VIS not applicable for this client. me1 Intake: 17:20 IV: 1000ml; Total: 1000ml. me1 19:19 IV: 50ml; Total: 1050ml. me1 Outcome: 18:47 Decision to Hospitalize by Provider. rt 20:27 Admitted to Tele accompanied by tech, via wheelchair, room 423, with chart, Report me1 called to faxed report at 20:25; confirmed receipt with [employer]. 20:27 Condition: stable 20:27 Instructed on the need for admit, 20:58 Patient left the ED. me1 Signatures: Dispatcher [employer] Graciela Rodríguze, Reg Reg mr Trini Heck RN RN ap3 Sae Man MD MD rt Christy Ceron RN RN me1 Corrections: (The following items were deleted from the chart) 18:14 16:00 BP 97 / 54; Pulse 57bpm; Resp 19bpm; Pulse Ox 98% RA; me1 me1 18:14 17:00 BP 112 / 87; Pulse 72bpm; Resp 20bpm; Pulse Ox 99%; me1 me1
--- NOTE | 2024-01-10 18:48 | EDPHYS ---
Physician Documentation [facility] Name: Chelsi Nye Age: 73 yrs Sex: Female : 1950 Arrival Date: 01/10/2024 Time: 15:19 Bed 18 Private MD: Nick Reyes ED Physician Sae Man HPI: 01/09 16:27 This 73 yrs old Black Female presents to ER via Ambulatory with complaints of High rt heart rate. 16:27 Patient presents to the ED with reported tachycardia. Patient went to her primary rt care's office today for routine checkup, states that the heart rate was fast. The patient has no symptoms currently. Denies other complaints at this time, symptoms are moderate in severity, no other aggravating or alleviating factors.. Historical: - Allergies: 15:41 Codeine; ap3 - PMHx: 15:41 CVA; Hyperlipidemia; Hypertension; Myocardial infarction; ap3 - Immunization history:: Client reports having NOT received the Covid vaccine. Flu vaccine is not up to date. - Infectious Disease History:: Denies. - Social history:: Smoking status: Patient denies any tobacco usage or history of. - Family history:: not pertinent. ROS: 16:27 Constitutional: Negative for fever, chills, and weight loss, Cardiovascular: Negative rt for chest pain, palpitations, and edema, Respiratory: Negative for shortness of breath, cough, wheezing, and pleuritic chest pain, Abdomen/GI: Negative for abdominal pain, nausea, vomiting, diarrhea, and constipation, MS/Extremity: Negative for injury and deformity, Skin: Negative for injury, rash, and discoloration, Neuro: Negative for headache, weakness, numbness, tingling, and seizure, Psych: Negative for depression, anxiety, suicide ideation, homicidal ideation, and hallucinations, Exam: 16:27 Constitutional: This is a well developed, well nourished patient who is awake, alert, rt and in no acute distress. Head/Face: Normocephalic, atraumatic. Chest/axilla: Normal chest wall appearance and motion. Nontender with no deformity. No lesions are appreciated. Cardiovascular: Regular rate and rhythm with a normal S1 and S2. No gallops, murmurs, or rubs. Normal PMI, no JVD. No pulse deficits. Respiratory: Lungs have equal breath sounds bilaterally, clear to auscultation and percussion. No rales, rhonchi or wheezes noted. No increased work of breathing, no retractions or nasal flaring. Abdomen/GI: Soft, non-tender, with normal bowel sounds. No distension or tympany. No guarding or rebound. No evidence of tenderness throughout. Skin: Warm, dry with normal turgor. Normal color with no rashes, no lesions, and no evidence of cellulitis. MS/ Extremity: Pulses equal, no cyanosis. Neurovascular intact. Full, normal range of motion. Neuro: Awake and alert, GCS 15, oriented to person, place, time, and situation. Cranial nerves II-XII grossly intact. Motor strength 5/5 in all extremities. Sensory grossly intact. Cerebellar exam normal. Normal gait. 16:27 ECG was reviewed by the Attending Physician. Vital Signs: 15:39 Pulse 125; Resp 19; Temp 98.7; Pulse Ox 99% on R/A; Weight 95.25 kg; ap3 15:46 BP 179 / 80; me1 16:00 BP 158 / 96; Pulse 120; Resp 22; Pulse Ox 100% on R/A; me1 17:00 BP 185 / 93; Pulse 121; Resp 19; Pulse Ox 98% on R/A; me1 18:00 BP 187 / 83; Pulse 117; Resp 19; Pulse Ox 98% on R/A; me1 19:00 BP 171 / 80; Pulse 112; Resp 19; Pulse Ox 99% on R/A; me1 20:00 BP 176 / 72; Pulse 109; Resp 19; Pulse Ox 97% on R/A; me1 MDM: 15:33 Patient medically screened. rt 19:27 Differential Diagnosis Dehydration, dysrhythmia,. Data reviewed: vital signs, nurses rt notes, lab test result(s), EKG, radiologic studies. Consideration of Admission/Observation Patient was admitted/placed on observation. Management of patient was discussed with the following: Hospitalist: Agrees to admit. I considered the following discharge prescriptions or medication management in the emergency department Medications were administered in the Emergency Department. See MAR. Independent interpretation of the following test(s) in the Emergency Department X-Ray: My interpretation is No pneumonia seen on interpretation of x-ray images. Test considered but Not performed: CT: CT considered to rule out pulmonary embolus, low creatinine, no symptoms consistent with PE such as cough, chest pain, shortness of breath. Will forego at this time.. Care significantly affected by the following chronic conditions: Hypertension. Counseling: I had a detailed discussion with the patient and/or guardian regarding the historical points, exam findings, and any diagnostic results supporting the discharge/admit diagnosis, lab results, radiology results, the need for further work-up and treatment in the hospital. Response to treatment: There is no appreciated change of the patient's symptoms at this time. 01/09 15:39 Order name: Basic Metabolic Panel; Complete Time: 16:47 rt 01/09 15:39 Order name: CBC with Diff; Complete Time: 16:47 rt 01/09 15:39 Order name: LFT's; Complete Time: 16:47 rt 01/09 15:39 Order name: Magnesium; Complete Time: 16:47 rt 01/09 15:39 Order name: NT PRO-BNP; Complete Time: 16:47 rt 01/09 15:39 Order name: PT-INR; Complete Time: 16:47 rt 01/09 15:39 Order name: Troponin HS; Complete Time: 16:47 rt 01/09 15:39 Order name: TSH; Complete Time: 16:47 rt 01/09 17:17 Order name: UAM; Complete Time: 18:29 rt 01/09 20:06 Order name: T4 Free EDMS 01/09 20:06 Order name: Thyroid Stimulating Hormone EDMS 01/09 20:06 Order name: CBC with Automated Diff EDMS 01/09 20:06 Order name: CBC with Automated Diff EDMS 01/09 20:06 Order name: Comprehensive Metabolic Panel EDMS 01/09 20:06 Order name: Comprehensive Metabolic Panel EDMS 01/09 20:06 Order name: Magnesium EDMS 01/09 20:06 Order name: Magnesium EDMS 01/09 20:06 Order name: Phosphorus EDMS 01/09 20:06 Order name: Phosphorus EDMS 01/09 20:06 Order name: Troponin High Sensitivity EDMS 01/09 20:06 Order name: Troponin High Sensitivity EDMS 01/09 20:06 Order name: Troponin High Sensitivity EDMS 01/09 20:06 Order name: Troponin High Sensitivity EDMS 01/09 20:06 Order name: Urinalysis w/ reflexes EDMS 01/09 15:39 Order name: XRAY Chest (1 view); Complete Time: 16:57 rt 01/09 20:06 Order name: CONS Physician Consult EDMS 01/09 15:39 Order name: Cardiac monitoring; Complete Time: 15:39 rt 01/09 15:39 Order name: EKG - Nurse/Tech; Complete Time: 16:17 rt 01/09 15:39 Order name: IV Saline Lock; Complete Time: 16:02 rt 01/09 15:39 Order name: Labs collected and sent; Complete Time: 16:02 rt 01/09 15:39 Order name: O2 Per Protocol; Complete Time: 15:39 rt 01/09 15:39 Order name: O2 Sat Monitoring; Complete Time: 15:39 rt EC:27 Rate is 119 beats/min. Rhythm is regular, Paced with No ectopy, AV sequential paced, rt ST, T waves, conduction are consistent with ventricular paced rhythm. No Q waves. Administered Medications: 16:40 Drug: NS 0.9% IV 1000 ml IV at 1 bolus Per protocol; 1000 mL bolus Route: IV; Rate: 1 me1 bolus; Site: left antecubital; 17:20 Follow up: Response: No adverse reaction; IV Status: Completed infusion; IV Intake: me1 1000ml 18:44 Drug: Rocephin - Rocephin (cefTRIAXone) IVPB 1 grams IVPB once over 30 mins; (mix in 50 me1 mL NS) Route: IVPB; Infused Over: 30 mins; Site: left antecubital; 19:19 Follow up: Response: No adverse reaction; IV Status: Completed infusion; IV Intake: [id number] Disposition Summary: 01/10/24 18:47 Hospitalization Ordered Notes: Hospitalization Status: Observation rt Provider: Clemente Perera rt Location: Telemetry/MedSurg (observation) rt Condition: Stable rt Problem: new rt Symptoms: are unchanged rt Bed/Room Type: Standard rt Room Assignment: 423(01/10/24 20:17) kmf Diagnosis - Persistent tachycardia rt - Leukocytosis rt Forms: - Medication Reconciliation Form rt - SBAR form rt - Leadership Thank You Letter rt Signatures: Dispatcher [employer] Trini Levy RN RN ap3 Sae Man MD MD rt Christy Ceron RN RN me1 Raine Hansen kmf Corrections: (The following items were deleted from the chart) 15:39 15:39 BASIC METABOLIC PANEL+C.LAB.BRZ ordered. EDMS EDMS 15:39 15:39 CBC+H.LAB.BRZ ordered. EDMS EDMS 15:39 15:39 HEPATIC FUNCTION+C.LAB.BRZ ordered. EDMS EDMS 15:39 15:39 MAGNESIUM+C.LAB.BRZ ordered. EDMS EDMS 15:39 15:39 PROBNP+C.LAB.BRZ ordered. EDMS EDMS 15:39 15:39 PROTIME (+INR)+COAG.LAB.BRZ ordered. EDMS EDMS 15:39 15:39 Troponin High Sensitivity+C.LAB.BRZ ordered. EDMS EDMS 15:39 15:39 THYROID STIMULAT HORMONE+C.LAB.BRZ ordered. EDMS EDMS 15:40 15:40 Chest Single View+RAD.RAD.BRZ ordered. EDMS EDMS 20:17 18:47 rt kmf
--- NOTE | 2024-01-10 20:00 | P.HP ---
Certification for Inpatient Patient admitted to: Observation With expected LOS: <2 Midnights Practitioner: I am a practitioner with admitting privileges, knowledge of patient current condition, hospital course, and medical plan of care. Services: Services provided to patient in accordance with Admission requirements found in Title 42 Section 412.3 of the Code of Federal Regulations Patient History Date of Service: 01/10/24 Reason for admission: High Heart Rate History of Present Illness: 73 yrs old Female with past medical history hypertension, hyperlipidemia, CAD, CVA, possible CHF status post pacemaker placement in 2017 came in with high heart rate. Patient went to her primary care doctor for routine checkup and noticed that the heart rate was fast up to 120s and 130s. Patient denies any chest pain or shortness of breath. No fever or chills. Complains of generalized weakness . Denies any nausea vomiting or diarrhea. Patient was assessed in the ER and is admitted for further management of tachycardia EKG showed atrial ventricular pacing with tachycardia Patient is being admitted for further management and possible cardiology evaluation and possible pacemaker interrogation Allergies codeine Allergy (Verified 07/08/21 23:05) Unknown Home medications list reviewed: Yes Home Medications: Atorvastatin Calcium [Lipitor] 80 mg PO BEDTIME 07/09/21 Carvedilol [Coreg] 12.5 mg PO BID 07/09/21 Cholecalciferol (Vitamin D3) [Vitamin D3] 50 mcg PO DAILY 07/09/21 Clopidogrel Bisulfate [Plavix*] 75 mg PO DAILY 07/09/21 Flaxseed Oil [Flaxseed] 1,000 mg PO DAILY 07/09/21 Hydralazine [Apresoline*] 3 tab PO QID 07/09/21 Iron 65 mg PO DAILY 07/09/21 Lisinopril [Zestril] 40 mg PO DAILY 07/09/21 Metformin ER [Glucophage ER*] 500 mg PO BID 07/09/21 hydroCHLOROthiazide [Hydrochlorothiazide] 25 mg PO DAILY 07/09/21 - Past Medical/Surgical History Diabetic: No Past Medical History: Reviewed- Non-Contributory -: Hypertension -: Hyperlipidemia -: History of [place]/CVA 2015 Past Surgical History: Reviewed- Non-Contributory -: Pacemaker/defibrillator insertion Psychosocial/ Personal History: Currently resides with her daughter - Family History Family History: Reviewed- Non-Contributory - Social History Smoking Status: Never smoker Alcohol use: No CD- Drugs: No Caffeine use: No Review of Systems 10-point ROS is otherwise unremarkable Physical Examination - Vital Signs Temperature: 98.7 F Blood Pressure: 162/78 Pulse: 110 Respirations: 18 Pulse Ox (%): 96 - Physical Exam General: Alert, In no apparent distress, Oriented x3, Obese HEENT: Atraumatic, Normocephalic, PERRLA Neck: Supple, 2+ carotid pulse no bruit Respiratory: Clear to auscultation bilaterally, Normal air movement Cardiovascular: Normal S1 S2, Irregular heart rate/rhythm Capillary refill: <2 Seconds Gastrointestinal: Soft and benign, W/out hepatosplenomegaly, No ascites, No tenderness, No guarding Musculoskeletal: No clubbing, No swelling Integumentary: No rashes, No breakdown Neurological: Normal speech, Normal strength at 5/5 x4 extr, Cranial nerves 3-12 intact, Normal reflexes 2+, Normal affect Lymphatics: No axilla or inguinal lymphadenopathy - Studies Laboratory Data (last 24 hrs) 01/10/24 01/10/24 01/10/24 16:01 16:01 16:01 WBC 15.90 H Hgb 12.1 Hct 39.1 Plt Count 254 PT 11.6 INR 1.06 Sodium 135 L Potassium 4.2 BUN 26 H Creatinine 1.57 H Glucose 246 H Magnesium 1.6 Total Bilirubin 0.3 AST 16 ALT 31 Alkaline Phosphatase 114 Assessment and Plan - Problems (Diagnosis) (1) Chest pain Current Visit: Yes Status: Acute Plan: Chest pain to rule out ACS Will trend cardiac enzymes Will monitor telemetry Started on aspirin and statin EKG did not show any acute changes suggestive of ischemia Will get an echocardiogram Cardiology consult Tachycardia Started on beta-blockers Cardiology evaluation Will get echocardiogram Hypertension Antihypertensives titrated Continue home medications and titrate as needed Hyperlipidemia Continue statin Leukocytosis UTI Will start IV antibiotics Monitor closely IV hydration Acute kidney injury Dehydration Started on IV hydration Renal parameters monitored GI/DVT prophylaxis Advanced directive full code Discharge Plan: Home Plan to discharge in: 48 Hours - Advance Directives Does patient have a Living Will: No Does patient have a Durable POA for Healthcare: No - Code Status/Comfort Care Code Status: Full Code Time Spent Managing Pts Care (In Minutes): 48
[2024-01-10] MEDS ORDERED: ONDANSETRON 4 MG/2 ML VIAL IV PRN (20:01)
[2024-01-10] MEDS ORDERED: ACETAMINOPHEN 325 MG TABLET PO PRN (20:01)
[2024-01-10 21:04] LABS: Thyroid Stimulating Hormone 0.745 uIU/mL (0.358-3.740)
[2024-01-10] MEDS: NA CHLORIDE 0.9% 1,000 ML IV SCH (22:45)
[2024-01-10] MEDS: ATORVASTATIN 80 MG TAB ONE (23:15)
[2024-01-10] MEDS: HYDRALAZINE HCL 25 MG TABLET ONE (23:15)
[2024-01-10] MEDS: HYDRALAZINE HCL 25 MG TABLET PO ONE (23:23)
[2024-01-10] MEDS: ATORVASTATIN 80 MG TAB PO ONE (23:24)
[2024-01-11 01:51] VITALS: BMI 37.2
[2024-01-11 03:05] LABS: Absolute Basophils 0.1 K/uL (0-0.5); Absolute Eosinophils 0.1 K/uL (0-0.5); Absolute Lymphocytes (CBC) 1.6 K/uL (0.7-4.9); Absolute Monocytes 1.1 K/uL (0.1-1.3); Absolute Neutrophil 12.7 K/uL (1.8-8.0); Basophils % 0.3 % (0-1.3); Eosinophils % 0.7 % (0-4.4); Hematocrit 37.4 % (36.0-45.0); Hemoglobin 11.6 g/dL (12.0-15.0); Lymphocytes % 10.6 % (15.3-44.8); MCH 25.7 pg (27.0-35.0); Monocytes % 6.8 % (3.3-12.3); Neutrophils % 81.6 % (41.7-73.7); Platelets 234 thou/uL (152-406); Red Cell Distribution Width 14.3 % (12.1-15.2)
[2024-01-11 03:22] LABS: Albumin/Globulin Ratio 0.7 (1.1-1.8); Anion Gap 7.5 mEq/L (5.0-15.0); Bilirubin Total 0.4 mg/dL (0.2-1.0); Globulin 4.3 g/dL (2.3-3.5); Magnesium 1.7 mg/dL (1.6-2.4); Potassium 4.5 mEq/L (3.5-5.1); Protein, Total 7.3 g/dL (6.4-8.2)
[2024-01-11] MEDS: IPRATROPIUM BROM 0.5MG/2.5ML NEB PRN (04:46)
[2024-01-11] MEDS: CEFTRIAXONE 1,000 MG in NA CHLORIDE 0.9% 50 ML IVPB SCH (09:02)
[2024-01-11] MEDS: CLOPIDOGREL 75 MG TABLET PO SCH (09:04)
[2024-01-11] MEDS: HYDRALAZINE HCL 25 MG TABLET PO SCH (09:04)
[2024-01-11] MEDS: ENOXAPARIN 30 MG/0.3 ML SQ SCH (09:04)
[2024-01-11] MEDS: FERROUS SULFATE 325 MG TAB PO SCH (09:05)
[2024-01-11] MEDS: MAGNESIUM SULFATE 1 gm IVPB 1 GM/100 ML BAG IV ONE (09:12)
[2024-01-11] MEDS: carvediloL 12.5 MG TAB PO SCH (09:12)
[2024-01-11] MEDS: VITAMIN D 1000 UNIT TAB PO SCH (09:12)
[2024-01-11] MEDS: ALBUTEROL 2.5 MG/3 ML NEB SOL NEB PRN (10:10)
[2024-01-11] MEDS: LOSARTAN POTASSIUM 50 MG TABLET PO SCH (11:12)
[2024-01-11 15:48] VITALS: O2SAT 97
--- NOTE | 2024-01-11 17:53 | P.DS ---
Admission Date: 01/10/24 Discharge Date: 01/11/24 Disposition: ROUTINE DISCHARGE Discharge Condition: FAIR Reason for Admission: High Heart Rate - Problems (1) Sinus tachycardia Current Visit: Yes Status: Acute (2) Paced rhythm on electrocardiogram (ECG) Current Visit: Yes Status: Acute Brief History of Present Illness: 73 yrs old Female with past medical history hypertension, hyperlipidemia, CAD, CVA, possible CHF status post pacemaker placement in 2017 came in with high heart rate. Patient went to her primary care doctor for routine checkup and noticed that the heart rate was fast up to 120s and 130s. Patient denies any chest pain or shortness of breath. No fever or chills. Complains of generalized weakness . Denies any nausea vomiting or diarrhea. Patient was assessed in the ER and was admitted for further management of tachycardia EKG showed atrial ventricular pacing with tachycardia Patient was admitted for further management. Hospital Course: Patient was hospitalized and started on IV Rocephin for UTI. Had an EKG done that showed sinus rhythm, heart rate in the 90s, occasionally paced rhythm. EKG findings discussed with cardiology, patient heart rate currently controlled on her home dose Coreg. CTA thorax done was done and PE ruled out. Patient's UA did not show any significant evidence of UTI Patient only symptom was wheezing which apparently most likely to her how to position, it was noted patient only wheezes when her neck is flexed and will be upper airway transmitted sounds. She was briefly treated with bronchodilators. Patient denied history of COPD. Patient advised not to take metformin for couple of days due to contrast use for the CT scan. Patient is discharged to follow-up with cardiology as outpatient. Vital Signs/Physical Exam: Temp Pulse Resp BP Pulse Ox 97.9 F 93 H 16 168/60 H 99 01/11/24 16:00 01/11/24 16:00 01/11/24 16:00 01/11/24 16:00 01/11/24 16:00 General: Alert, In no apparent distress, Oriented x3, Obese HEENT: Mucous membr. moist/pink Neck: Supple, No Thyromegaly Respiratory: Clear to auscultation bilaterally, Normal air movement Cardiovascular: No edema, Regular rate/rhythm, Normal S1 S2 Gastrointestinal: Normal bowel sounds, Soft and benign, Non-distended, No tenderness Musculoskeletal: No swelling, No tenderness Integumentary: No rashes, No cyanosis Neurological: Normal strength at 5/5 x4 extr Laboratory Data at Discharge: WBC 15.60 thou/uL (4.3-10.9) H 01/11/24 02:28 Hgb 11.6 g/dL (12.0-15.0) L 01/11/24 02:28 Hct 37.4 % (36.0-45.0) 01/11/24 02:28 Plt Count 234 thou/uL (152-406) 01/11/24 02:28 PT 11.6 SECONDS (9.5-12.5) 01/10/24 16:01 INR 1.06 01/10/24 16:01 Sodium 137 mEq/L (136-145) 01/11/24 02:28 Potassium 4.5 mEq/L (3.5-5.1) 01/11/24 02:28 BUN 21 mg/dL (7-18) H 01/11/24 02:28 Creatinine 1.17 mg/dL (0.55-1.02) H 01/11/24 02:28 Glucose 239 mg/dL (74-106) H 01/11/24 02:28 Phosphorus 3.0 mg/dL (2.5-4.9) 01/11/24 02:28 Magnesium 1.7 mg/dL (1.6-2.4) 01/11/24 02:28 Total Bilirubin 0.4 mg/dL (0.2-1.0) 01/11/24 02:28 AST 17 U/L (15-37) 01/11/24 02:28 ALT 28 U/L (13-56) 01/11/24 02:28 Alkaline Phosphatase 112 U/L (45-117) 01/11/24 02:28 Home Medications: Atorvastatin Calcium [Lipitor] 80 mg PO BEDTIME 07/09/21 Carvedilol [Coreg] 12.5 mg PO BID 07/09/21 Cholecalciferol (Vitamin D3) [Vitamin D3] 50 mcg PO DAILY 07/09/21 Clopidogrel Bisulfate [Plavix*] 75 mg PO DAILY 07/09/21 Flaxseed Oil [Flaxseed] 1,000 mg PO DAILY 07/09/21 Hydralazine [Apresoline*] 3 tab PO QID 10/17/21 Iron 65 mg PO DAILY 07/09/21 Metformin ER [Glucophage ER*] 500 mg PO BID 07/09/21 hydroCHLOROthiazide [Hydrochlorothiazide] 25 mg PO DAILY 07/09/21 Ciprofloxacin HCl [Cipro] 500 mg PO BID #10 tab 01/11/24 Losartan Potassium 100 mg PO DAILY #30 tab 01/11/24 New Medications: Ciprofloxacin HCl [Cipro] 500 mg PO BID #10 tab Losartan Potassium 100 mg PO DAILY #30 tab Physician Discharge Instructions: Patient was hospitalized and started on IV Rocephin for UTI. Had an EKG done that showed sinus rhythm, heart rate in the 90s, occasionally paced rhythm. Patient only symptom was wheezing which apparently most likely to her how to position, it was noted patient only wheezes when her neck is flexed and will be upper airway transmitted sounds. She was briefly treated with bronchodilators. Patient denied history of COPD. CTA thorax done Patient advised not to take metformin for couple of days due to contrast use for the CT scan. Followup: Nick Reyes, [Primary Care Provider] - 1-2 Weeks Time spent managing pt's care (in minutes): 27
--- NOTE | 2024-01-11 19:04 | RAD REPORT ---
EXAM DESCRIPTION: CT - Chest For Pe Angio - 01/11/2024 6:32 pm CLINICAL HISTORY: Tachycardia and dyspnea COMPARISON: No comparisons TECHNIQUE: Thin axial CT images of the chest were obtained following administration of iodinated IV contrast. Multiplanar reconstructions, and maximum intensity projection reconstructions were generat ed and reviewed. Exam utilizes a protocol for optimal evaluation of pulmonary arterial tree. All CT scans are performed using dose optimization technique as appropriate and may include automated exposure control or mA/KV adjustment according to patient size. FINDINGS: Pulmonary arteries are normal. No emboli or other suspicious finding. No acute or signific ant aorta findings. No mass or infiltrate in the lung parenchyma apart from bilateral dependent subsegmental atelectatic changes. No pleural thickening or pleural effusion. No pneumothorax. No abnormal mediastinal or hilar masses or lymphadenopathy seen. No chest wall mass or abnormal axill iary lymphadenopathy. IMPRESSION: No evidence of acute central pulmonary emboli. Negative CT scan of the chest for other significant findings.
[2024-01-11] MEDS: ATORVASTATIN 80 MG TAB PO SCH (20:47)
[2024-01-11 21:09] VITALS: BP 159/65
[2024-01-11 22:46] VITALS: TEMP 99.3
[2024-01-12] MEDS ORDERED: hydroCHLOROthiazide 25 MG TAB PO SCH (09:00)
== END 2024-01-11 21:50 | disposition home or self-care (01) ==
LOC: ER 15:19 → INTOOBSV 20:01 → ERHOLD 20:01 → 4TH 20:27
PROVIDERS: ADMIT Family Medicine; ATTEND Internal Medicine
DX: R00.0 Tachycardia, unspecified (principal); N17.9 Acute kidney failure, unspecified; D72.829 Elevated white blood cell count, unspecified; I25.10 Atherosclerotic heart disease of native coronary artery without angina pectoris; I10 Essential (primary) hypertension; E78.5 Hyperlipidemia, unspecified; R53.1 Weakness; Z86.73 Personal history of transient ischemic attack (TIA), and cerebral infarction without residual deficits; Z95.0 Presence of cardiac pacemaker
CPT/HCPCS: 96365; 96361; 85025 ×2; 81001; 80048; 36415 ×2; 83735 ×2; 84100; 85610; 80076; 84443 ×2; 84484 ×4; 84439; 80053; 83880; 71275; 71045; 94640; 94760 ×5; 99285; Q9967; J3475; J7613 ×2; J7644 ×2; J1650; J7030 ×2; J0696 ×2; 93005; G0378